=== PATIENT | male | born 1980 | race Hispanic/Latino ===

== ENCOUNTER 2016-09-20 22:03 | Emergency (ER) | payer OTHER ==
[2016-09-20 22:50] VITALS: BP 125/77; PULSE 77; RESP 16; TEMP 98; O2SAT 99
--- NOTE | 2016-09-21 00:17 | ED PDOC ---
Upper Extremity Pain/Injury Time Seen by Provider: 09/20/16 23:42 Chief Complaint (Nursing): Upper Extremity Problem/Injury Chief Complaint (Provider): shoulder injury History Per: Patient History/Exam Limitations: no limitations Additional Complaint(s): 36yo M in Ed for eval of right shoulder injury after soccer playing -states that he fell onto right shoulder and felt it jam but has FROM of shoulder no numbness/tingling, skin intact. Past Medical History Reviewed: Historical Data, Nursing Documentation, Vital Signs Vital Signs: Last Vital Signs Temp 98.0 F 09/20/16 22:47 Pulse 77 09/20/16 22:47 Resp 16 09/20/16 22:47 BP 125/77 09/20/16 22:47 Pulse Ox 99 09/20/16 22:47 - Medical History PMH: No Chronic Diseases - Family History Family History: States: No Known Family Hx - Home Medications Home Medications: Ambulatory Orders Medication Instructions Recorded Ibuprofen [Motrin] 400 mg PO Q6 #30 tab 09/21/16 - Allergies Allergies/Adverse Reactions: Allergies Allergy/AdvReac Type Severity Reaction Status Date / Time No Known Allergies Allergy Verified 09/20/16 22:47 Review of Systems ROS Statement: Except As Marked, All Systems Reviewed And Found Negative Musculoskeletal: Positive for: Shoulder Pain Physical Exam - Reviewed Nursing Documentation Reviewed: Yes Vital Signs Reviewed: Yes - Physical Exam Appears: Positive for: Well, Non-toxic, No Acute Distress Head Exam: Positive for: ATRAUMATIC, NORMAL INSPECTION, NORMOCEPHALIC Skin: Positive for: Normal Color, Warm, DRY Cardiovascular/Chest: Positive for: Regular Rate, Rhythm Respiratory: Positive for: CNT, Normal Breath Sounds Extremity: Positive for: Normal ROM, Other (right hsoulder: mild AC joint tneder but FROM axillary nerve intact good pronation/supination. ) Neurologic/Psych: Positive for: Alert, Oriented - ECG O2 Sat by Pulse Oximetry: 99 - Radiology X-Ray: Interpreted by Ut X-Ray Interpretation: No Acute Disease Medical Decision Making Medical Decision Making: dx: shoulder injury no bony injury noted. given sling for better support plan: to take OTC motrin for pain. pt offered pain control declined. Disposition - Clinical Impression Clinical Impression: Shoulder injury - Patient ED Disposition Is Patient to be Admitted: No Counseled Patient/Family Regarding: Studies Performed, Diagnosis, Need For Followup - Disposition Disposition: Routine/Home Disposition Time: 00:19 Condition: STABLE Prescriptions: Ibuprofen [Motrin] 400 mg PO Q6 #30 tab Instructions: Ibuprofen (By mouth), Shoulder Pain (ED)
--- NOTE | 2016-09-21 10:44 | RAD ---
PROCEDURE: Radiographs of the Right Shoulder HISTORY: shoulder pain COMPARISON: Velasquez juan manuel No prior. FINDINGS: BONES: Normal. No fracture. JOINTS: Normal. Glenohumeral and acromioclavicular joints preserved. No osteoarthritis. SOFT TISSUES: Normal. OTHER FINDINGS: None. IMPRESSION: Normal radiographs of the right shoulder. Consider followup studies including MRI if symptoms persist
== END 2016-09-21 00:10 | disposition home or self-care (01) ==
LOC: H.ER 22:03
DX: S49.91XA Unspecified injury of right shoulder and upper arm, initial encounter (principal); W19.XXXA Unspecified fall, initial encounter; Y92.322 Soccer field as the place of occurrence of the external cause